=== PATIENT | male | born 1985 ===

== ENCOUNTER 2017-09-26 04:56 | Emergency (ER) | payer SELFPAY ==
[2017-09-26 05:48] LABS: ABS Basophils 0 10^3/ul (0-0.2); ABS Eosinophils 0.2 10^3/ul (0-0.6); ABS Lymphocytes 3.6 10^3/ul (1.0-4.8); ABS Monocytes 0.6 10^3/ul (0-0.8); ABS Neutrophils 4.9 10^3/ul (1.5-7.7); ABS Nucleated RBC 0 10^3/ul; Eosinophil % 2.1 % (0-6); Hematocrit 45 % (42-52); Hemoglobin 15.3 g/dl (14.0-18.0); Lymphocyte % 38.8 % (25-47); Mean Corpuscular HGB Conc 34 g/dl (31-36); Mean Corpuscular Hemoglobin 29 pg (27-31); Mean Corpuscular Volume 86 fL (80-94); Mean Platelet Volume 9.2 um3 (7.4-10.4); Nucleated Red Blood Cells % 0; Platelet Count 156 10^3/ul (150-450); Red Blood Count 5.24 10^6/ul (4.0-5.4); Red Cell Distribution Width 13 % (10.5-15); White Blood Count 9.3 10^3/ul (3.5-10.8)
[2017-09-26 05:53] LABS: EGFR Non-African American 130.3 (>60)
[2017-09-26 06:56] VITALS: BP 119/79
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
== END 2017-09-26 07:33 | disposition home or self-care (01) ==
LOC: ED 04:56
DX: S00.83XA Contusion of other part of head, initial encounter (principal); R04.0 Epistaxis; H57.11 Ocular pain, right eye; Y09 Assault by unspecified means; Y92.9 Unspecified place or not applicable
CPT/HCPCS: 36415; 70450; 70486; 80053; 80320; 85025; 99282; G0480